=== PATIENT | male | born 1970 | race Caucasian/White ===

== ENCOUNTER → 2016-11-16 | Outpatient (CLI) | payer BC ==
--- OUTSIDE RECORDS SUMMARY | 2016-11-16 15:30 | XMS REPORT ---
Author Author MARÍA ELENA ARROYO Organization [employer] Address Unknown Phone Unavailable Care Team Providers Care Shipbuilding Draftsperson Name Role Phone MARÍA ELENA ARROYO CP Unavailable Allergies No Known Allergies Problems Problem Type Condition ICD-9 Code Onset Dates Condition Status Assessment Dental examination V72.2 Active Medications No Known Medications Procedures Procedure Coding System Code Date INTRAORL-PERIAPICAL 1 FILM 09456 CPT-4 D0220 May 10, 2015 INTRAORL-PERIAPICAL EA ADD FILM CPT-4 D0230 May 10, 2015 LTD ORAL EVALUATION - PROBLEM FOCUS CPT-4 D0140 May 10, 2015 BITEWING - SINGLE FILM CPT-4 D0270 May 10, 2015 Results No Known Results Summary Purpose [employer] Submission
--- NOTE | 2016-11-16 16:22 | Diagnostic Imaging Report ---
INDICATION: Low back pain for the last year, no known injury. DISCUSSION: Three views of the lumbosacral spine were obtained, no comparison. Mild degenerative disc disease is present. No fracture or subluxation. Overall alignment is anatomic. The sacroiliac joints are maintained. Soft tissues are unremarkable. IMPRESSION: 1. Multilevel mild degenerative disc disease present throughout the lumbar spine. Dictated by: Dictated on workstation # [id number]
== END ==
LOC: RAD 15:27
PROVIDERS: ATTEND Nurse Practitioner Family
DX: M51.36 Other intervertebral disc degeneration, lumbar region (principal)
CPT/HCPCS: 72100

== ENCOUNTER → 2022-01-04 | Outpatient (CLI) | payer BC ==
[~2022-01-04] VITALS: Ht 190.5 cm; Wt 149.8 kg
[~2022-01-04] MED LIST: AMLO-250 PO; BUPR150T24 PO; CAPS42.514 TP; GABA-486 PO; LISI1TAB44 PO; PRAZ1CAP2 PO; TIZA4CAP8 PO
== END | disposition home or self-care (01) ==
LOC: PREOP 05:35
PROVIDERS: ATTEND Surgery
DX: Z01.818 Encounter for other preprocedural examination (principal)

== ENCOUNTER 2022-01-15 07:34 | Day surgery (SDC) | payer BC ==
[~2022-01-15] VITALS: Ht 190.5 cm; Wt 149.8 kg
[~2022-01-15 07:34] MED LIST changes: +LACTATED RINGERS 1,000 ML IV STA
[2022-01-15] MEDS ORDERED: HURRICAINE EXT TUBE (BENZOCAINE) XX PRN (07:45)
[2022-01-15 07:50] VITALS: BP 126/78
[2022-01-15] MEDS ORDERED: PROPOFOL INJECTION 50 ML IV ONE (07:59)
[2022-01-15] MEDS ORDERED: MIDAZOLAM 2 MG/2 ML (VERSED) VIAL ONE (07:59)
--- NOTE | 2022-01-15 07:59 | Progress Note-Pre Operative ---
Pre-Operative Progress Note H&P Reviewed The H&P was reviewed, patient examined and no changes noted. Date Seen by Provider: Jan 15, 2022 Time Seen by Provider: 07:59 Date H&P Reviewed: Jan 15, 2022 Time H&P Reviewed: 07:59 Pre-Operative Diagnosis: dysphagia, screening colonoscopy PIPER PIMENTEL DO Jan 15, 2022 07:59
[2022-01-15 08:35] VITALS: BP 106/69
[2022-01-15 08:45] VITALS: BP 115/66
[2022-01-15] MEDS ORDERED: PANT40TA2 PO (09:12)
--- NOTE | 2022-01-15 09:13 | Discharge Inst-Simple/Standard ---
Discharge Inst-Standard Discharge Medications New, Converted or Re-Newed RX: Transmitted to Pharmacy Patient Instructions/Follow Up Plan of Care/Instructions/FU: 2 weeks Mag Activity as Tolerated: Yes Discharge Diet: Regular Diet PIPER PIMENTEL DO Jan 15, 2022 09:12
--- NOTE | 2022-01-15 09:18 | Progress Note-Post Operative ---
Post-Operative Progess Note Surgeon (s)/Cook Soup (s) Surgeon PIPER PIMENTEL DO Cook Soup: na Pre-Operative Diagnosis dysphagia, screening colonoscopy Post-Operative Diagnosis gastritis, small hiatal hernia, reflux esophagitis c schotski's ring, colon polyp x 2 Procedure & Operative Findings Date of Procedure 01/15/22 Procedure Performed/Findings egd c biopsies, colonoscopy with snare polypectomy and hot bx polypectomy Anesthesia Type per roll repairer Estimated Blood Loss Estimated blood loss (mL): none Specimens/Packing Specimens Removed antrum, ge, colon polyps PIPER PIMENTEL DO Jan 15, 2022 09:18
[2022-01-15 09:23] VITALS: BP 115/66
--- NOTE | 2022-01-15 13:25 | Anesthesia-General Post-Op ---
MAC Patient Condition Mental Status/LOC: Same as Preop Cardiovascular: Satisfactory Nausea/Vomiting: Absent Respiratory: Satisfactory Pain: Controlled Complications: Absent Post Op Complications Complications None Follow Up Care/Instructions Patient Instructions None needed. Anesthesiology Discharge Order Discharge Order Patient is doing well, no complaints, stable vital signs, no apparent adverse anesthesia problems. No complications reported per nursing. CRIS MEEK CRNA Jan 15, 2022 13:25
--- NOTE | 2022-01-15 14:41 | OPERATIVE REPORT ---
DATE OF SERVICE: 01/15/2022 PREOPERATIVE DIAGNOSES: Dysphagia and screening colonoscopy. POSTOPERATIVE DIAGNOSES: Gastritis, small hiatal hernia, reflux esophagitis with Schatzki's ring, colon polyps. SURGEON: Piper Hathaway DO ANESTHESIA: Per HARDWARE SUPPLIES SALES REPRESENTATIVE. ESTIMATED BLOOD LOSS: None. COMPLICATIONS: None. PROCEDURE: EGD with biopsies, colonoscopy with snare polypectomy and hot biopsy polypectomy. INDICATIONS: The patient is a 51-year-old male who has been having some difficulty swallowing and needing screening colonoscopy. He understands risks and benefits and wishes to proceed. Consent was signed in the chart. DESCRIPTION OF PROCEDURE: The patient was taken to the endoscopy suite, placed in left lateral recumbent position. Timeout was performed. Scope was inserted in mouth, down the esophagus, stomach and into the duodenum without difficulty. No polyps, masses or ulcerations within the duodenum. Scope was slowly retracted back into the stomach where it was further insufflated. Erythematous changes consistent with gastritis present in the antrum. Biopsy was obtained. Scope was retroflexed noting a small hiatal hernia, no other pathology. Scope was returned to its normal position, slowly withdrawn to distal esophagus, which had some evidence of reflux esophagitis and Schatzki's ring. Biopsies of the GE junction was obtained and also obtained two biopsies from the Schatzki's ring. Scope was then slowly retracted back to completely remove, noting no other pathology. Digital rectal exam was performed. No palpable polyps, masses or ulcerations. Scope was inserted in the rectum and advanced all the way to cecum with minimal difficulty. Prep was adequate. Scope was slowly retracted back. No polyps, masses or ulcerations within the cecum, ascending colon. In the transverse colon, a larger polyp was present, which snare polypectomy was performed. Scope had to be retracted back with obtained for specimen. Scope was then reinserted and advanced all the way back and then slowly retracted. No polyps, masses or ulcerations within the remainder of the transverse colon, descending colon, a small polyp was present, which hot biopsy polypectomy was performed. Scope was then continuously retracted back. No polyps, masses or ulcerations within the remainder of the descending, sigmoid colon. In the rectum, the scope was retroflexed noting no other pathology. Scope was returned to its normal position, slowly withdrawn until completely removed. The patient tolerated the procedure well without any complications, taken to recovery room in stable condition. RECOMMENDATIONS: The patient will need repeat colonoscopy in one year due to larger polyp. Follow up to discuss pathology in couple of weeks. He is also reflux esophagitis and Schatzki's ring and changes consistent with gastritis. We would put on gastritis and ulcer diet. Would also await biopsy results. We will start on Protonix 40 mg daily. Job ID: [id number] DocumentID: [id number] Dictated Date: 01/15/2022 09:17:30 Auto Damage Estimator Date: 01/15/2022 14:40:20 Dictated By: PIPER HATHAWAY DO
== END 2022-01-15 09:25 | disposition home or self-care (01) ==
LOC: ENDO 07:34
PROVIDERS: ATTEND Surgery
DX: Z12.11 Encounter for screening for malignant neoplasm of colon (principal); K29.70 Gastritis, unspecified, without bleeding; K21.00 Gastro-esophageal reflux disease with esophagitis, without bleeding; K22.70 Barrett's esophagus without dysplasia; K22.2 Esophageal obstruction; D12.3 Benign neoplasm of transverse colon; D12.4 Benign neoplasm of descending colon; K44.9 Diaphragmatic hernia without obstruction or gangrene; F17.210 Nicotine dependence, cigarettes, uncomplicated; E04.1 Nontoxic single thyroid nodule
CPT/HCPCS: 88305

== ENCOUNTER → 2022-02-21 | Outpatient (CLI) | payer BC ==
[~2022-02-21] MED LIST changes: +CATHETER FLUSH 10 ML SYR IV PRN; +HOLD METFORMIN - RECEIVED CONTRAST 20 ML VIAL IV SCH; +IOHEXOL 350 MG/ML 100 ML (OMNIPAQUE 350) VIAL IV ONE; -LACTATED RINGERS 1,000 ML IV STA; +NS 100 ML (IVPB) BAG IV ONE; +PANT40TA2 PO
[2022-02-21 16:02] LABS: POTASSIUM 3.3 MMOL/L (3.6-5.0)
[2022-02-21 16:03] LABS: CALCIUM 8.7 MG/DL (8.5-10.1)
[2022-02-21 16:05] LABS: TOTAL PROTEIN 7.1 GM/DL (6.4-8.2)
[2022-02-21 16:06] LABS: BILIRUBIN,TOTAL 0.4 MG/DL (0.1-1.0)
[2022-02-21 16:08] LABS: CREATININE SERUM 1.1 MG/DL (0.60-1.30)
--- NOTE | 2022-02-22 08:48 | Diagnostic Imaging Report ---
PROCEDURE: CT neck soft tissue with and without contrast. TECHNIQUE: Helically acquired axial images were obtained through the neck both before and after the administration of intravenous contrast. Auto Exposure Controls were utilized during the CT exam to meet ALARA standards for radiation dose reduction. Date: February 21, 2022. Indication: 51-year-old male, concern for thyroid nodule. Neck mass. Comparison: None available. Findings: There is a 10 mm nodule in the right parotid gland on axial image 49 which does appear to contain a focal area of fat attenuation. There are additional smaller nodules in the right and left parotid glands. This may potentially reflect intraparotid lymph nodes although are technically nonspecific. There are right submandibular lymph nodes measuring up to approximately 8 mm in short axis on axial image 56. There are additional subcentimeter short axis cervical lymph nodes bilaterally. There is a left level IIb cervical lymph node measuring 8 mm in short axis on axial image 56 as an example. The bilateral submandibular glands are unremarkable in appearance. CT is not most optimal for assessing possible thyroid nodule. There is no CT apparent thyroid nodule. There is a coarse appearing calcification in the left lobe of the thyroid gland. The thyroid gland appears unremarkable in size. There is no identified mucosal or submucosal mass along the airway. There is no pronounced narrowing of the airway. There is no otherwise identified neck mass. The visualized portions of the lungs are clear. The orbits are unremarkable in appearance. There are multilevel degenerative changes of the cervical spine. There are very prominent anterior osteophytes at C3-C4, C4-C5, and C5-C6. There are also likely posterior disc osteophyte complexes at these levels. Impression: 1. Multilevel disc degenerative changes of the cervical spine with very prominent anterior osteophytes at C3-C4, C4-C5, and C5-C6. 2. No identified discrete thyroid nodule. 3. Soft tissue attenuation nodules in the parotid glands including 10 mm in size on the right. This may reflect intraparotid lymph nodes although are not technically nonspecific. There are additional subcentimeter short axis cervical lymph nodes bilaterally which do not meet CT size criteria for adenopathy. 4. No otherwise identified neck mass. Dictated by: Dictated on workstation # [id number]
== END ==
LOC: RAD 02-20 15:45
PROVIDERS: ATTEND Plastic Surgery Plastic Surgery Within the Head and Neck
DX: M50.322 Other cervical disc degeneration at C5-C6 level (principal); K11.8 Other diseases of salivary glands; E04.2 Nontoxic multinodular goiter
CPT/HCPCS: 36415; 70492; 80053